=== PATIENT | male | born 1950 | race Caucasian/White ===

== ENCOUNTER → 2019-01-25 | Outpatient (CLI) | payer OTHER | LOC: M.LAB 01-24 15:46 → M.INFUS 08:00 | DX: D46.9 Myelodysplastic syndrome, unspecified (principal) ==

== ENCOUNTER → 2019-02-03 | Outpatient (CLI) | payer OTHER ==
[2019-02-03 08:49] VITALS: BP 104/56; BP 112/52; BP 120/59; BP 139/57
[2019-02-03 10:49] VITALS: BP 118/58; BP 120/59; BP 125/68; BP 127/66; BP 139/57
--- NOTE | 2019-02-03 13:38 | NUR ---
ARRIVED AMBULATORY. MADE SELF COMFORTABLE IN RECLINER. IV STARTED WITH OUT DIFFICULTY. WARM BLANKET FOR COMFORT. C/O NAUSEA. DENIES ADVERSE REACTION TO PRIOR TRANSFUSION OF BLOOD. TRANSFUSION STARTED. CALL PLACED TO DR. HARRISON REQUESTION SOMETHING FOR NAUSEA. NEW ORDER RECIEVED FOR ZOFRAN 8MG IVP PRIOR TO DISCHARGE. TRANSFUSION COMPLETED AND TOLERATED WELL. ZOFRAN GIVEN IVP THRU PIV LEFT FA. DENEIS QUESTIONS OR NEEDS AT DISCHARGE.
== END ==
LOC: M.INFUS 01:14
DX: D46.9 Myelodysplastic syndrome, unspecified (principal); I25.10 Atherosclerotic heart disease of native coronary artery without angina pectoris; I10 Essential (primary) hypertension; Z87.891 Personal history of nicotine dependence

== ENCOUNTER → 2019-02-24 | Outpatient (CLI) | payer OTHER ==
[2019-02-24 10:11] VITALS: BP 108/62; BP 115/56; BP 115/70; BP 123/74
--- NOTE | 2019-02-24 13:51 | NUR ---
ARRIVED AMBULATORY WITH . MADE SELF COMFORTABLE. IV STARTED WITH OUT DIFFICULTY AND LAB FOR TYPE AND CROSS DRAWN DURING IV START. EDUCATION COMPLETED AND CONSENT SIGNED. TRANSFUSION COMPLETED AND TOLERATED WELL. DISCHARGED TO HOME WITH .
== END ==
LOC: M.INFUS 04:35
DX: D46.9 Myelodysplastic syndrome, unspecified (principal); I25.10 Atherosclerotic heart disease of native coronary artery without angina pectoris; I10 Essential (primary) hypertension; Z98.61 Coronary angioplasty status; Z87.891 Personal history of nicotine dependence

== ENCOUNTER → 2019-03-19 | Outpatient (CLI) | payer OTHER | LOC: M.LAB 15:40 → M.INFUS 03-20 10:00 → M.LAB 03-21 08:00 | DX: D46.9 Myelodysplastic syndrome, unspecified (principal) ==

== ENCOUNTER → 2019-03-21 | Outpatient (CLI) | payer OTHER ==
[2019-03-21 07:55] VITALS: BP 138/69
[2019-03-21 08:14] VITALS: BP 110/52; BP 111/63; BP 112/56; BP 113/67
[2019-03-21 08:35] VITALS: BP 138/69
[2019-03-21 11:05] VITALS: BP 115/54; BP 117/63; BP 122/69; BP 128/69
--- NOTE | 2019-03-21 14:44 | NUR ---
PATIENT ADMITTED WITH PRE-TYPED AND CROSSMATCHED FOR 2 UNITS OF PRBS'S. IV STARTED, BLOOD TRASFUSION BEGUN AFTER PRE-MEDICATIONS GIVEN. PATIENT TOLERATED BOTH UNITS WITH NO ADVERSE EFFECTS. LASIX 20 MG GIVEN BETWEEN UNITS WAS TOLERATED WELL WITH GOOD URINE OUTPUT (PATIENT AMBULATED TO THE BATHROOM SEVERAL TIMES) WITH REPORTS OF GOOD OUTPUT. TRANSFUSION COMPLETE, PATIENT DISMISSED WITH REPORT OF "FEELING BETTER".
== END ==
LOC: M.INFUS 05:10
DX: D46.9 Myelodysplastic syndrome, unspecified (principal); I25.10 Atherosclerotic heart disease of native coronary artery without angina pectoris; I10 Essential (primary) hypertension

== ENCOUNTER → 2019-04-16 | Outpatient (CLI) | payer OTHER ==
[2019-04-16 08:51] VITALS: BP 110/55; BP 112/72; BP 114/68; BP 115/66
[2019-04-16 11:11] VITALS: BP 112/72; BP 114/68; BP 119/76; BP 129/58
--- NOTE | 2019-04-16 13:46 | NUR ---
PT ARRIVED AMBULATORY. MADE SELF COMFORTABLE IN RECLINER. 20 GAUGE STARTED IN PT'S LEFT HAND. PT GIVEN PREMEDS OF TYLENOL AND BENADRYL PO. PT TOLERATED 1ST UNIT OF PRBC'S WELL W/NO ADVERSE SIGNS OR SYMPTOMS. PT GIVEN LASIX 20 MG IVP IN BETWEEN UNITS. PT TOLERATED 2ND UNIT OF PRBC'S W/NO ADVERSE SIGNS OR SYMPTOMS WELL. PT GIVEN D/CHARGE INSTRUCTIONS. VERBALIZED UNDERSTANDING. VOICED NO CONCERNS/NEEDS AT DISCHARGE. ACCOMPANIED BY . AMBULATORY W/STEADY GAIT FOR DISCHARGE HOME TO SELF CARE.
== END ==
LOC: M.INFUS 05:17
DX: D46.9 Myelodysplastic syndrome, unspecified (principal); D63.0 Anemia in neoplastic disease

== ENCOUNTER → 2019-05-09 | Outpatient (CLI) | payer OTHER ==
[2019-05-09 08:11] VITALS: BP 112/72; BP 118/77; BP 128/74; BP 137/71
[2019-05-09 10:02] VITALS: BP 123/59; BP 124/64; BP 128/74; BP 137/71
--- NOTE | 2019-05-09 13:52 | NUR ---
ARRIVED MABULATORY. MADE SELF COMFORTABLE IN RECLINER. IV STARTED WITH OUT DIFFICULTY. 2 UNITS PRBC TRANSFUSION COMPLETED AND TOLERATED WELL. DENIES QUESTIONS OR NEEDS AT DISCHARGE.
== END ==
LOC: M.INFUS 05:06
DX: D46.9 Myelodysplastic syndrome, unspecified (principal); D63.0 Anemia in neoplastic disease